=== PATIENT | male | born 1950 | race Caucasian/White ===

== ENCOUNTER 2019-04-18 15:52 | Emergency (ER) | payer MEDICARE ==
[~2019-04-18] VITALS: Ht 177.8 cm; Wt 110.0 kg
[2019-04-18 15:55] VITALS: BP 139/78
[2019-04-18] MEDS ORDERED: LIDOCAINE-MPF 1%, 5ML ONE ×2 (16:14→17:18)
[2019-04-18] MEDS ORDERED: LIDOCAINE 1%, 10ML INFIL ONE (16:30)
[2019-04-18] MEDS ORDERED: ACETAMINOPHEN 325 MG TABLET ONE (17:38)
[2019-04-18] MEDS ORDERED: ACETAMINOPHEN 325 MG TABLET PO ONE (18:00)
--- NOTE | 2019-04-18 18:24 | NUR ---
DRESSING APPLIED TO FINGER. PT TOLERATED WELL.
== END 2019-04-18 18:27 | disposition home or self-care (01) ==
LOC: ED 17:09
DX: S61.211A Laceration without foreign body of left index finger without damage to nail, initial encounter (principal); W54.0XXA Bitten by dog, initial encounter; Y93.89 Activity, other specified; Y92.89 Other specified places as the place of occurrence of the external cause; Y99.8 Other external cause status
CPT/HCPCS: 12001; 73140; 99283; J3490